=== PATIENT | female | born 1985 | race Caucasian/White ===

== ENCOUNTER 2022-10-26 09:33 | Inpatient (IN) ==
[2022-10-26] MEDS ORDERED: LIDOCAINE 1% LOCAL 20 ML VIAL INFIL PRN (09:48)
[2022-10-26] MEDS ORDERED: OXYTOCIN 30 UNITS/500 ML BAG IV PRN ×2 (09:48→15:51)
--- NOTE | 2022-10-26 09:54 | Labor Progress Brief Note ---
Date of Service October 26, 2022 Subjective Arrives from home with c/o ctx and LOF (clear) onset at 0815 this morning. Good FM, no VB. SIUP has been uncomplicated to date other than AMA. Denies DUARTE, vision change, RUQ pain. Assessment & Plan (1) SROM (spontaneous rupture of membranes): Plan Labor, SROM, some elevated BP without preeclampsia s/sx and likely due to pain / situational. Will send CMP. Anticipate epidural soon per pt request and either exp mgmt or augmentation depending on progress over time. Physical Exam Physical Exam: Breathing through ctx, gripping bedrail. Q2min. Normal affect / speech between ctx. Genitourinary: 4/100/-1, well applied / vertex. LOF clear. FHT Cat 1 [place] Q2m Results & Data Vital Signs (Past 12 Hours) Vital Signs Pulse BP 10/26/22 09:44 101 H 145/93 H 10/26/22 09:42 129 H 158/108 H Coding Level of Care Code None Diagnoses SROM (spontaneous rupture of membranes)
--- NOTE | 2022-10-26 10:08 | History & Physical Report ---
Date of Service October 26, 2022 Assessment & Plan (1) SROM (spontaneous rupture of membranes): Plan: -Admit to L&D d/t SROM and start of labor, actively having painful contractions -Monitor vitals per protocol. -SCDs, NPO, and anesthesia consulted for epidural. -IV fluids LR @125ml/hr -CBC and COVID ordered. -Elevated BP on admission, will check CMP. -Will consider pit if labor does not progress. (2) Need for rhogam due to Rh negative mother: Admission and Anticipated Discharge Date Admission Date: 10/26/2022 History of Present Illness Chief Complaint: SROM Primary Care Provider: Rahat Harley DO 38 weeks confirmed via LMP. Here for vaginal delivery d/t SROM at 0815 today. Complications with this include RH incompatibility (Rhogam given 08/09/22). Has been attending OB appointments regularly. Currently taking no medications, NKDA. Contractions: painful contractions on arrival. Requests epidural. Fluid or Blood loss: SROM Movement: active Labs - Blood type: O negative on 05/18/22 - Antibody screen: negative 08/09/22 - Hgb: 13.1 on 08/09/22 - Hct: 37.4 on 08/09/22 - Wbc: pending - Plt: 261 on 05/18/22 - Rubella: non-immune - VDRL/RPR: pending - Gonorrhea: not detected on 05/18/22 - Chlamydia: not detected on 05/18/22 - HIV: non-reactive on 05/18/22 - HbSAg: non-reactive on 05/18/22 - GBS: negative - Glucose tolerance x 2: 138 (1 hr glucose on 08/09/22) and 84 (POC glucose on 08/09/22) Allergies Allergy/AdvReac Type Severity Reaction Status Date / Time No Known Drug Allergies Allergy Verified 10/11/22 15:46 Home Medications Medication Instructions Recorded Confirmed Type albuterol sulfate 90 mcg/actuation 2 puff inhalation QID #8.5 grams 12/03/21 10/11/22 Rx aerosol inhaler (ProAir HFA) prenat.vits,karyna,[id number] 1 tab PO DAILY 05/12/22 10/11/22 History breast pump #1 ea 10/18/22 10/18/22 Rx Patient History Medical History (Updated 10/26/22 @ 10:28 by Deion Farrell MD) No pertinent past medical history Surgical History History of appendectomy [place] teeth extracted Family History Mother Dyslipidemia Hypertension Father Dyslipidemia Hypertension Other No pertinent family history Social History (Updated 05/12/22 @ 07:39 by Jessica Brennan) Smoking Status: Never smoker Second Hand Exposure: No; Do You Dip or Chew Tobacco: No; Hx Alcohol Use: No Hx Substance Use: No Preferred Language: Italian Communication Ability: Effective Bist[employer] Server Required: No Beliefs That Will Affect Care: None marital status: marital status details: Clemente (40) [phone] Current Living Situation: Spouse Current Living Situation Comment: Clemente - current occupational status: employed current occupation: [employer] Other Information That Helps Us Care for You: No Feels Safe at Home: Yes Safety Concerns: Feels Safe At This Time Childhood Exposure to Second-Hand Smoke: Yes caffeine: No Dental Care, Regularly: Yes Physical Activity Frequency: 5-6 Times per Week Seatbelt Use: always Sunscreen Use: No Assistive Devices: None Review of Systems Denies fever, chills, sweats Denies shortness of breath, difficulty breathing, chest pain, palpitations, chest pressure. Denies breast pain. Denies dysuria. Denies headache or changes in vision. Physical Exam Physical Exam: General: Alert, oriented. No acute distress. Cardiac: Regular rate and rhythm, no murmurs/rubs/gallops. Respiratory: Clear to auscultation bilaterally a/p, no wheezes/rales/rhonchi. No increased work of breathing. Symmetrical chest rise. No respiratory distress. Abdomen: Gravid; cat 1 FHTs; Position: cephalic presentation Pelvic: Dilation 4 cm; Effacement 100%; Station -[address] Sequeira Lower Extremities: No lower extremity edema or swelling. No deep calf pain. Ryan's negative bilaterally Results & Data Vital Signs (Past 12 Hours) Vital Signs Temp Pulse Resp BP 10/26/22 09:45 36.8 C 20 10/26/22 09:44 101 H 145/93 H 10/26/22 09:42 129 H 158/108 H
[2022-10-26] MEDS: LACTATED RINGER'S 1,000 ML IV PRN ×2 (10:10→11:21)
[2022-10-26] MEDS ORDERED: ePHEDrine sulfate 50 MG/ML AMP ONE (10:13)
[2022-10-26] MEDS ORDERED: fentaNYL 2MCG/ML ROPIVACAINE 1.25MG/ML 100 ML BAG EPI ONE (10:13)
[2022-10-26] MEDS ORDERED: BUPIVACAINE 0.25% PF 30 ML VIAL ONE (10:13)
[2022-10-26] MEDS ORDERED: LIDOCAINE 2%/EPINEPHRINE 1:200,000 20 ML PF ONE (10:13)
[2022-10-26] MEDS ORDERED: fentaNYL citrate PF 100 MCG/2 ML VIAL ONE (10:13)
[2022-10-26] MEDS ORDERED: SODIUM CHLORIDE 0.9% PF INJ 10 ML VIAL ONE (10:13)
[2022-10-26 10:28] LABS: Hematocrit (blood only) 41.2 % (37.0-47.0); Mean Corpuscular Hemoglobin 31.1 pg (25.0-34.0); Mean Corpuscular Hgb Conc 36.4 g/dL (32.0-36.0); Mean Corpuscular Volume 85.5 fL (80.0-100.0); Mean Platelet Volume 9.3 fL (9.4-12.4); Platelet Count 337 K/uL (130-400); RDW Coefficient of Variation 12.5 % (11.5-14.5); RDW Standard Deviation 38.7 fL (36.4-46.3); Red Blood Count 4.82 M/uL (4.20-5.40); White Blood Count 11.42 K/ul (4.8-10.8)
--- NOTE | 2022-10-26 10:28 | Anesthesiology Consultation ---
Date of Service October 26, 2022 Assessment & Plan (1) Encounter for pre-operative examination: Chart Review Chart Review: Acceptable Risk for Labor Epidural History Height/Weight Height: 5 ft 1 in Weight: 74.389 kg Allergies Allergy/AdvReac Type Severity Reaction Status Date / Time No Known Drug Allergies Allergy Verified 10/11/22 15:46 Medications Home Medications Medication Instructions Recorded Confirmed Last Taken albuterol sulfate 90 mcg/actuation 2 puff inhalation QID #8.5 grams 12/03/21 10/11/22 Unknown aerosol inhaler (ProAir HFA) prenat.vits,karyna,[id number] 1 tab PO DAILY 05/12/22 10/11/22 Unknown breast pump #1 ea 10/18/22 10/18/22 Unknown Past Medical History Medical History (Updated 10/26/22 @ 10:28 by Deion Farrell MD) No pertinent past medical history Past Family History Family History Mother Dyslipidemia Hypertension Father Dyslipidemia Hypertension Other No pertinent family history Past Surgical History Surgical History History of appendectomy [place] teeth extracted Social History Smoking Status: Never smoker Do You Dip or Chew Tobacco: No Hx Alcohol Use: No Hx Substance Use: No Physical Exam Vital Signs Last Vital Signs Temp 36.8 C 10/26/22 09:45 Pulse 101 H 10/26/22 09:44 Resp 20 10/26/22 09:45 BP 145/93 H 10/26/22 09:44
[2022-10-26 10:37] LABS: Albumin Globulin Ratio 1.1 (0.9-2); Albumin Level 3.7 gm/dl (3.4-5.0); BUN Creatinine Ratio 15.1 (10-20); Bilirubin,Total 0.4 mg/dl (0.2-1.0); Creatinine Clr Calc Pharmacy 82.6 ml/min; Est GFR (Non-African American) 86.3 ml/min; Globulin 3.3 gm/dl (2.5-4.0); Potassium 3.9 mmol/L (3.5-5.1)
[2022-10-26] MEDS ORDERED: fentaNYL citrate PF 100 MCG/2 ML VIAL EPI STA (10:57)
[2022-10-26] MEDS ORDERED: LIDOCAINE 2%/EPINEPHRINE 1:200,000 20 ML PF EPI STA (10:57)
[2022-10-26] MEDS ORDERED: BUPIVACAINE 0.25% PF 30 ML VIAL EPI STA (10:57)
[2022-10-26] MEDS ORDERED: BUPIVACAINE 0.25% PF 30 ML VIAL EPI PRN (10:57)
[2022-10-26] MEDS ORDERED: SODIUM CHLORIDE 0.9% PF INJ 10 ML VIAL EPI STA (10:57)
[2022-10-26] MEDS ORDERED: NALOXONE HCL 0.4 MG/1 ML VIAL/CARP IV PRN (10:57)
[2022-10-26] MEDS ORDERED: LIDOCAINE 2% MPF LOCAL 5 ML VIAL EPI PRN (10:57)
[2022-10-26] MEDS ORDERED: fentaNYL citrate PF 100 MCG/2 ML VIAL EPI PRN (10:57)
[2022-10-26] MEDS ORDERED: fentaNYL 2MCG/ML ROPIVACAINE 1.25MG/ML 100 ML BAG EPI PRN (10:57)
[2022-10-26] MEDS ORDERED: ONDANSETRON INJ 2 MG/ML 2 ML VIAL IV PRN (10:57)
[2022-10-26] MEDS ORDERED: NALOXONE HCL 1 MG in SODIUM CHLORIDE 0.9% 1000ML 1,000 ML IV PRN (10:57)
[2022-10-26] MEDS ORDERED: SODIUM CHLORIDE 0.9% PF INJ 10 ML VIAL EPI PRN (10:57)
[2022-10-26] MEDS ORDERED: ROPIVACAINE 0.5% PF 5 MG/ML 20 ML VIAL EPI PRN (10:57)
[2022-10-26] MEDS ORDERED: ePHEDrine sulfate 50 MG/ML AMP IV PRN (10:57)
--- NOTE | 2022-10-26 15:00 | Delivery Summary ---
Vaginal Delivery Summary Date of Service October 26, 2022 Vaginal Delivery Summary DIAGNOSES: 1. [place] intrauterine at 39w1d gestation. 2. Spontaneous onset of labor. 3. Group B Streptococcus Neg. PROCEDURE: Spontaneous vaginal delivery without laceration. SURGEON: Sharon Sequeira MD. ICE CREAM VAN VENDOR: None. ESTIMATED BLOOD LOSS: 250 mL. COMPLICATIONS: None. PLACENTA: Spontaneous and intact with a 3-vessel cord. DISPOSITION: Stable to labor and delivery. DESCRIPTION: The patient pushed well and brought the head to in DOA position. The infant's head was allowed to deliver with contraction force and no further active pushing, with the perineum protected during this time. There was 1 loop of nuchal cord. The left shoulder was anterior. The shoulders and body delivered without any difficulty, and the infant was placed on the maternal abdomen. It was vigorous and moving all extremities, and making respiratory efforts. The cord was doubly clamped by the MD and then cut by the FOB. The placenta delivered spontaneously and was noted to be intact and with a 3VC. The cervix, vagina and perineum were examined and were found to be without defect requiring repair. The fundus was firm and lochia minimal immediately after delivery. [facility] [place] Vaginal Delivery Charge Vaginal Delivery Codes: 55152 global code for the antepartum, delivery, and post-
--- NOTE | 2022-10-26 15:09 | Anesthesia Procedure Note ---
Date of Service October 26, 2022 Anesthesia Post Epidural Note Vital Signs Vital Signs: Temp Pulse Resp BP Pulse Ox 36.8 C 81 20 153/79 H 96 10/26/22 11:00 10/26/22 15:07 10/26/22 13:35 10/26/22 15:07 10/26/22 14:44 Notes Mental Status: alert / awake / arousable and participated in evaluation Nausea / Vomiting: adequately controlled Pain: adequately controlled Airway Patency, RR, SpO2: stable & adequate BP & HR: stable & adequate Hydration State: stable & adequate Neuraxial Anesthesia: was administered and sensory block is resolving Anesthetic Complications: no major complications apparent Epidural: Removed without complications and With tip intact
[2022-10-26] MEDS ORDERED: DIPHTHERIA/TETANUS/PERTUSSIS Vaccine (Tdap, Age 7+yrs) 0.5mL SYR/VL IM ONE (15:51)
[2022-10-26] MEDS ORDERED: ACETAMINOPHEN 325 MG TAB PO PRN (15:51)
[2022-10-26] MEDS ORDERED: HYDROCORTISONE ACETATE 25 MG SUPP PR PRN (15:51)
[2022-10-26] MEDS ORDERED: bisacodyL 10 MG SUPP PR PRN (15:51)
[2022-10-26] MEDS ORDERED: BENZOCAINE 20% AER SPR 82.5 GM CAN EXT PRN (15:51)
[2022-10-26] MEDS ORDERED: oxyCODONE/ACETAMINOPHEN 5mg/325mg TAB PO PRN (15:51)
[2022-10-26] MEDS: DOCUSATE SODIUM 100 MG CAP PO SCH (20:04)
[2022-10-26] MEDS: IBUPROFEN 600 MG TAB PO PRN (21:59)
[2022-10-27 06:38] LABS: Hematocrit (blood only) 35.1 % (37.0-47.0); Hemoglobin 12.4 g/dl (12.0-16.0); Mean Corpuscular Hgb Conc 35.3 g/dL (32.0-36.0); Mean Corpuscular Volume 87.8 fL (80.0-100.0); Mean Platelet Volume 9.5 fL (9.4-12.4); Platelet Count 262 K/uL (130-400); RDW Coefficient of Variation 12.5 % (11.5-14.5); RDW Standard Deviation 39.7 fL (36.4-46.3); White Blood Count 11.62 K/ul (4.8-10.8)
--- NOTE | 2022-10-27 07:22 | Obstetrical Progress Note ---
Date of Service October 27, 2022 Assessment & Plan (1) state: recovering well Subjective Ambulation: ambulating normally Voiding: no voiding problems Passing Gas:: Yes Diet Tolerance:: regular diet Lochia:: Small Feeding Type:: breast feeding Current Pain Level(1-10): 0 Physical Exam Constitutional WD/WN, vitals as above Eyes PERRL, conjunctivae normal, anicteric sclerae ENMT external ear and nose normal, oropharynx normal Neck trachea midline, no thyromegaly Respiratory normal respiratory effort and able to speak in complete sentences; no respiratory distress, no labored breathing and does not use accessory muscles Cardiovascular Rate/Rhythm: regular rate and regular rhythm Extremities: no calf tenderness and no pedal edema Chest (Breasts) Breast: normal inspection of breasts Gastrointestinal (Abdomen) Inspection/Auscultation: abdomen normal to inspection; abdomen not distended Musculoskeletal no cyanosis or clubbing, extremities motor strength 5/5 Skin no rashes, warm and dry Neurologic patellar DTR's 2+ bilat, sensation intact Psychiatric A+Ox3, euthymic affect Genitourinary Speculum/Bimanual Exam: uterus nontender OB Exam Abdomen: + fundal height (at umbilicus) Fundus: + firm Results & Data Vital Signs (Past 12 Hours) Vital Signs Temp Pulse Resp BP Pulse Ox O2 Del Method 10/27/22 03:30 97.9 F 56 L 16 131/83 98 Room Air 10/26/22 23:35 97.7 F 61 18 129/82 95 Room Air 10/26/22 19:58 97.9 F 76 16 127/83 97 Room Air
[2022-10-27] MEDS: PRENATAL VITAMIN 1 TAB PO SCH (09:09)
[2022-10-27] MEDS: DOCUSATE SODIUM 100 MG CAP PO SCH ×2 (09:09→20:49)
[2022-10-27] MEDS ORDERED: MEASLES, MUMPS & RUBELLA VIRUS VIAL SQ ONE (10:54)
[2022-10-27] MEDS: IBUPROFEN 600 MG TAB PO PRN ×2 (12:57→20:49)
[2022-10-27] MEDS ORDERED: bisacodyL 5 MG TABEC PO SCH (20:00)
--- NOTE | 2022-10-28 06:56 | Obstetrical Progress Note ---
Date of Service <Nnamdi Beal DO - Last Filed: 10/28/22 07:08> October 28, 2022 Assessment & Plan <Nnamdi Beal DO - Last Filed: 10/28/22 07:08> (1) state: - Feels well today. Eating well, voiding well, ambulating well. - Pain well controlled with ibuprofen 600mg Q4H PRN - Routine care -- OOB, ambulation, diet progression as tolerated - After discharge will have 6 week follow-up with [facility]. - Will D/C today. Day #:: 2 <Daily Staley MD, FACOG - Last Filed: 10/28/22 08:11> (1) state: Subjective <Nnamdi Beal DO - Last Filed: 10/28/22 07:08> Ambulation: ambulating normally Voiding: no voiding problems Passing Gas:: Yes Diet Tolerance:: regular diet Lochia:: Small Feeding Type:: breast feeding Current Pain Level(1-10): 0 Review of Systems Denies fever, chills, sweats Denies shortness of breath, difficulty breathing, chest pain, palpitations, chest pressure. Denies breast pain. Denies dysuria. Denies headache or changes in vision. Physical Exam <Nnamdi Beal DO - Last Filed: 10/28/22 07:08> General: Alert, oriented. No acute distress. Cardiac: Regular rate and rhythm, no murmurs/rubs/gallops. Respiratory: Clear to auscultation bilaterally a/p, no wheezes/rales/rhonchi. No increased work of breathing. Symmetrical chest rise. No respiratory distress. Abdomen: Soft, nontender, nondistended. Bowel sounds present. Uterus: Uterine fundus firm, palpable 2 cm below umbilicus. Lower Extremities: No lower extremity edema or swelling. No deep calf pain. Ryan's negative bilaterally. Results & Data <Nnamdi Beal DO - Last Filed: 10/28/22 07:08> Vital Signs (Past 12 Hours) Vital Signs Temp Pulse Resp BP Pulse Ox O2 Del Method 10/27/22 23:32 36.7 C 64 14 135/76 95 Room Air 10/27/22 21:22 125/79 10/27/22 19:46 37.1 C 62 16 148/83 H 95 Room Air <Daily Staley MD, FACOG - Last Filed: 10/28/22 08:11> Co-Signing Physician Notes Resident Physician Supervision Note: I interviewed and examined the patient. Discussed with Dr. Beal and agree with findings and plan as documented in the note. Any exceptions or clarifications are listed here: [None] Documented By: Daily Staley MD, FACOG Resident Activity Tracking <Nnamdi Beal DO - Last Filed: 10/28/22 07:08> Resident Involvement: Resident Care Provided Care Provided: OB Delivery
[2022-10-28 07:03] LABS: Hematocrit (blood only) 36.3 % (37.0-47.0); Hemoglobin 12.7 g/dl (12.0-16.0)
[2022-10-28] MEDS: DOCUSATE SODIUM 100 MG CAP PO SCH (07:31)
[2022-10-28] MEDS: IBUPROFEN 600 MG TAB PO PRN (07:31)
[2022-10-28] MEDS: PRENATAL VITAMIN 1 TAB PO SCH (07:32)
== END 2022-10-28 11:05 | disposition home or self-care (01) | DRG 807 ==
LOC: OPB 09:33 → 4S1 09:38 → 4E2 17:54